=== PATIENT | female | born 1990 | race Caucasian/White ===

== ENCOUNTER 2017-12-26 04:31 | Emergency (ER) | payer MEDICAID ==
[~2017-12-26] VITALS: Ht 170.2 cm; Wt 66.7 kg
[2017-12-26 04:46] VITALS: BP 126/75
[2017-12-26] MEDS ORDERED: CIPR2.5D18 EACHEYE (06:18)
[2017-12-26] MEDS ORDERED: ciprofloxacin 0.3% 2.5ml ophthalmic solution EACHEYE SCH (08:00)
== END 2017-12-26 06:33 | disposition home or self-care (01) ==
LOC: ER 04:31
DX: H10.9 Unspecified conjunctivitis (principal); Z88.2 Allergy status to sulfonamides
CPT/HCPCS: 99283